=== PATIENT | male | born 1950 | race Hispanic/Latino ===

== ENCOUNTER 2018-11-13 17:34 | Emergency (ER) | payer OTHER ==
[~2018-11-13 17:34] MED LIST: FINA5TAB41 PO
== END 2018-11-13 18:58 | disposition home or self-care (01) ==
LOC: EDH 17:34
DX: I10 Essential (primary) hypertension (principal); Z85.46 Personal history of malignant neoplasm of prostate

== ENCOUNTER 2020-06-06 21:03 | Emergency (ER) | payer OTHER ==
[2020-06-06] MEDS ORDERED: SODIUM CHLORIDE 0.9% 1000ML 1,000 ML IV ONE (21:04)
[2020-06-06] MEDS ORDERED: ONDANSETRON HCL 4 MG/2 ML VIAL ONE (21:17)
[2020-06-06 21:30] LABS: BASOPHILS % (AUTO) 0.5 % (0.0-5.0); EOSINOPHILS % (AUTO) 2.1 % (0.0-8.0); HEMATOCRIT 40.5 % (42-54); LYMPHOCYTES % (AUTO) 53.4 % (21.0-51.0); MEAN CORPUSCULAR HGB CONC 34.3 g/dL (32.0-36.0); MEAN CORPUSCULAR VOLUME 87.5 fL (79-99); MONOCYTES % (AUTO) 6.8 % (3.0-13.0); NEUTROPHILS % (AUTO) 36.9 % (40.0-77.0); PLATELET COUNT (AUTO) 184 K/uL (130-400); RED BLOOD CELL COUNT(AUTO) 4.63 MIL/uL (4.50-6.20); RED CELL DISTRIBUTION WIDTH 14.1 % (11.0-15.5); WHITE BLOOD COUNT (AUTO) 10.4 K/uL (4.8-10.8)
[2020-06-06 21:44] LABS: CREATININE 1.1 mg/dL (0.5-1.5)
[2020-06-06] MEDS ORDERED: MORPHINE SULFATE 4 MG/1ML SYG ONE (21:44)
[2020-06-06 21:47] LABS: INR 0.96 (0.85-1.15); PARTIAL THROMBOPLASTIN TIME 23.1 SEC (26.3-35.5); PROTHROMBIN TIME 10.4 SEC (9.6-11.6)
[2020-06-06 21:48] LABS: BILIRUBIN,TOTAL 0.7 mg/dL (0.2-1.0); TOTAL PROTEIN, SERUM 7.5 g/dL (6.0-8.3)
== END 2020-06-06 23:59 | disposition home or self-care (01) ==
LOC: EDH 21:03
DX: R10.84 Generalized abdominal pain (principal); R11.2 Nausea with vomiting, unspecified; I10 Essential (primary) hypertension; Z85.46 Personal history of malignant neoplasm of prostate; Z79.899 Other long term (current) drug therapy
CPT/HCPCS: 36415; 74176; 80053; 83605; 83690; 84484; 85025; 85610; 85730; 93005; 96361; 96374; 96375; 99285; J2270; J2405; J7030

== ENCOUNTER 2021-05-19 11:51 | Emergency (ER) | payer OTHER ==
[~2021-05-19] VITALS: Ht 170.2 cm; Wt 68.9 kg
[2021-05-19 12:06] VITALS: BP 140/84
[2021-05-19 13:40] VITALS: BP 138/83
[2021-05-19] MEDS ORDERED: MAGNESIUM CITRATE 296 ML SOLUTION PO ONE (14:30)
[2021-05-19] MEDS ORDERED: LACT10SO9 PO (15:42)
[2021-05-19 15:48] LABS: BASOPHILS % (AUTO) 0.2 % (0.0-5.0); EOSINOPHILS % (AUTO) 0.4 % (0.0-8.0); HEMATOCRIT 42.7 % (42-54); LYMPHOCYTES % (AUTO) 55.7 % (21.0-51.0); MEAN CORPUSCULAR HEMOGLOBIN 29.2 pg (27.0-33.0); MEAN CORPUSCULAR VOLUME 86.1 fL (79-99); MONOCYTES % (AUTO) 23.3 % (3.0-13.0); NEUTROPHILS % (AUTO) 20.2 % (40.0-77.0); PLATELET COUNT (AUTO) 164 K/uL (130-400); RED BLOOD CELL COUNT(AUTO) 4.96 MIL/uL (4.50-6.20); RED CELL DISTRIBUTION WIDTH 15.1 % (11.0-15.5); WHITE BLOOD COUNT (AUTO) 11.2 K/uL (4.8-10.8)
[2021-05-19 16:00] LABS: POTASSIUM 4.3 mmol/L (3.5-5.1)
[2021-05-19 16:03] LABS: BILIRUBIN,TOTAL 0.6 mg/dL (0.2-1.0); TOTAL PROTEIN, SERUM 8.3 g/dL (6.0-8.3)
[2021-05-19 16:05] VITALS: BP 132/80
== END 2021-05-19 16:06 | disposition home or self-care (01) ==
LOC: EDH 11:51
DX: K59.00 Constipation, unspecified (principal); Z85.46 Personal history of malignant neoplasm of prostate; Z79.899 Other long term (current) drug therapy
CPT/HCPCS: 36415; 74018; 80053; 85025

== ENCOUNTER 2021-05-20 22:31 | Emergency (ER) | payer OTHER ==
[~2021-05-20] VITALS: Ht 175.3 cm; Wt 68.0 kg
[~2021-05-20 22:31] MED LIST changes: +LACT10SO9 PO
[2021-05-21 00:05] LABS: BASOPHILS % (AUTO) 0.2 % (0.0-5.0); HEMATOCRIT 40.1 % (42-54); LYMPHOCYTES % (AUTO) 47.2 % (21.0-51.0); MEAN CORPUSCULAR HEMOGLOBIN 29.3 pg (27.0-33.0); MEAN CORPUSCULAR HGB CONC 33.7 g/dL (32.0-36.0); NEUTROPHILS % (AUTO) 27.4 % (40.0-77.0); PLATELET COUNT (AUTO) 191 K/uL (130-400); RED BLOOD CELL COUNT(AUTO) 4.61 MIL/uL (4.50-6.20); WHITE BLOOD COUNT (AUTO) 13.1 K/uL (4.8-10.8)
[2021-05-21 00:15] LABS: APPEARANCE,URINE Clear (CLEAR); BILIRUBIN,URINE Negative (NEGATIVE); COLOR,URINE Yellow (YELLOW); GLUCOSE, URINE (UA) Negative (NEGATIVE); KETONES,URINE Negative (NEGATIVE); LEUKOCYTE ESTERASE ,URINE Negative (NEGATIVE); NITRATE,URINE Negative (NEGATIVE); OCCULT BLOOD,URINE Negative (NEGATIVE); PROTEIN,URINE Negative (NEGATIVE); UROBILINOGEN,URINE 0.2 mg/dL (0.2-1.0)
[2021-05-21 00:15] LABS: POTASSIUM 3.8 mmol/L (3.5-5.1)
[2021-05-21 00:20] LABS: ALBUMIN 3.8 g/dL (3.5-5.0); BILIRUBIN,TOTAL 0.9 mg/dL (0.2-1.0); TOTAL PROTEIN, SERUM 7.9 g/dL (6.0-8.3)
[2021-05-21 00:30] LABS: INR 1.02 (0.85-1.15); PROTHROMBIN TIME 11.1 SEC (9.6-11.6)
[2021-05-21 00:31] LABS: B-TYPE NATRIURETIC PEPTIDE 9 pg/mL (0-100); PARTIAL THROMBOPLASTIN TIME 25.9 SEC (26.3-35.5)
[2021-05-21] MEDS ORDERED: ONDA4TAB4 PO (04:38)
[2021-05-21 04:42] VITALS: BP 131/78
== END 2021-05-21 04:49 | disposition home or self-care (01) ==
LOC: EDH 22:31
DX: K52.9 Noninfective gastroenteritis and colitis, unspecified (principal); R59.0 Localized enlarged lymph nodes; Z85.46 Personal history of malignant neoplasm of prostate
CPT/HCPCS: 36415; 71045; 74176; 80053; 81003; 82550; 83880; 84484; 85025; 85610; 85730; 93005

== ENCOUNTER → 2022-04-14 | Outpatient (CLI) | payer OTHER ==
[~2022-04-14] MED LIST changes: +ONDA4TAB4 PO
== END | disposition home or self-care (01) ==
LOC: RAH 08:27
PROVIDERS: ATTEND Internal Medicine Gastroenterology
DX: K76.89 Other specified diseases of liver (principal); R93.2 Abnormal findings on diagnostic imaging of liver and biliary tract
CPT/HCPCS: 76700